=== PATIENT | female | born 2000 | race Caucasian/White ===

== ENCOUNTER 2021-02-25 21:30 | Emergency (ER) | payer OTHER ==
[~2021-02-25] VITALS: Ht 170.2 cm; Wt 70.5 kg
[2021-02-25 22:50] VITALS: BP 125/79; PULSE 79; TEMP 98
== END 2021-02-25 22:50 | disposition home or self-care (01) ==
LOC: COL.ER 21:30
DX: R20.2 Paresthesia of skin (principal)